=== PATIENT | female | born 1980 | race Caucasian/White ===

== ENCOUNTER → 2018-07-14 | Outpatient (CLI) | payer BC ==
[2018-07-14 09:18] LABS: HEMATOCRIT 39.5 % (36.0-47.0); HEMOGLOBIN 13.2 g/dl (12.0-15.5); MEAN CORPUSCULAR HGB CONC 33.4 g/dl (32.0-36.5); MEAN CORPUSCULAR VOLUME 89.8 fl (80.0-96.0); PLATELET COUNT, AUTOMATED 254 10^3/uL (150-450); WHITE BLOOD COUNT 7.5 10^3/uL (4.0-10.0)
[2018-07-14 09:57] LABS: ALBUMIN 3.6 GM/DL (3.2-5.2); ALT/SGPT 19 U/L (12-78); BILIRUBIN,TOTAL 0.4 MG/DL (0.2-1.0); BLOOD UREA NITROGEN 19 MG/DL (7-18); CALCIUM LEVEL 8.8 MG/DL (8.5-10.1); CARBON DIOXIDE LEVEL 27 MEQ/L (21-32); CHLORIDE LEVEL 106 MEQ/L (98-107); CHOLESTEROL LEVEL 270 MG/DL (<200); CHOLESTEROL RISK RATIO 3.552 (<5); GLOMERULAR FILTRATION RATE > 60.0 (>60); GLUCOSE, FASTING 87 MG/DL (70-100); HDL CHOLESTEROL 76 MG/DL (>40); LDL CHOLESTEROL 163 MG/DL (<100); NON-HDL-C 194 MG/DL; SODIUM LEVEL 139 MEQ/L (136-145); TOTAL PROTEIN 6.8 GM/DL (6.4-8.2); TRIGLYCERIDES LEVEL 157 MG/DL (<150)
== END ==
LOC: M WUC 08:17
PROVIDERS: ATTEND Nurse Practitioner Adult Health
DX: Z00.00 Encounter for general adult medical examination without abnormal findings (principal)

== ENCOUNTER → 2018-07-20 | Outpatient (CLI) | payer BC, OTHER ==
--- NOTE | 2018-07-21 10:09 | REP ---
Renal ultrasound: The right kidney measures 10.3 x 4.7 x 4.0 cm. The left kidney measures 9.1 x 3.5 by 4.9 cm. The right kidney is normal size. The left kidney is in the low normal size range. Renal cortical echogenicity is normal bilaterally. There is no hydronephrosis or hydroureter on the right on the left. There are no solid or cystic renal masses. There are no renal calculi. Bladder: The bladder is incompletely distended and cannot be further evaluated. There is an artifactual bladder wall fold in the superior anterior bladder wall. The bladder wall appears diffusely thickened, however, this is likely artifact from incomplete distension. Impression: The left kidney is in the low normal size range. The kidneys are otherwise unremarkable. The bladder is incompletely distended and cannot be further evaluated at this time. Electronically Signed by Iban Stanley MD 07/21/2018 10:01 A
== END ==
LOC: M RAD 17:30
PROVIDERS: ATTEND Nurse Practitioner Adult Health
DX: R03.0 Elevated blood-pressure reading, without diagnosis of hypertension (principal)

== ENCOUNTER → 2018-07-29 | Outpatient (CLI) | payer BC ==
--- NOTE | 2018-07-30 07:57 | ECHO ---
DATE OF STUDY: 07/29/2018 REFERRING PROVIDER: CYNTHIA Simental INDICATION: Heart murmur. HEIGHT: 150 cm. WEIGHT: 59 kg. DIMENSIONS: IVS: 1.1 LV: 3.8 LVPW: 1.1 LA: 3.3 Aorta: 2.7 IVC: 1.5 Mitral E wave velocity: 110 A-wave: 74 E prime septal: 11.0 E prime lateral: 13.1 Left atrial volume index: 33 FINDINGS: This study is of good technical quality. The patient is in sinus rhythm. Left ventricle is of normal size and has normal systolic function, estimated left ventricular ejection fraction (LVEF) 65-70%. Right ventricle also normal size and systolic function. Left atrium is mildly enlarged. Right atrium appears normal. Aortic, mitral, tricuspid and pulmonic valves were all reasonably well seen and appear normal. No pericardial effusion is noted. Inferior vena cava is of normal size and appropriately collapses with respiration indicative of normal central venous pressure. Aortic root, aortic arch and visualized segment of abdominal aorta all appear normal. Doppler interrogation reveals no aortic or mitral valve disease. There is mild mitral insufficiency. Calculated pulmonary artery pressure is in 30s corresponding to mild pulmonary hypertension. Pulmonic valve is also minimally insufficient. Mitral inflow pattern and tissue Doppler imaging of mitral annulus reveal normal diastolic function. CONCLUSIONS: 1. Study is of good technical quality. 2. Normal LV size, systolic and diastolic function. 3. No significant valvular disease. 4. Normal central venous pressure but likely mild pulmonary hypertension. COMMENTS: Subacute bacterial endocarditis (SBE) prophylaxis is not recommended.
== END ==
LOC: M CARPUL 09:16
PROVIDERS: ATTEND Nurse Practitioner Adult Health
DX: R03.0 Elevated blood-pressure reading, without diagnosis of hypertension (principal); R01.1 Cardiac murmur, unspecified

== ENCOUNTER → 2018-09-27 | Outpatient (REF) | LOC: M LAB REF 15:28 | PROVIDERS: ATTEND Nurse Practitioner Adult Health | DX: Z00.00 Encounter for general adult medical examination without abnormal findings (principal) ==

== ENCOUNTER → 2019-09-09 | Outpatient (CLI) | payer BC ==
[2019-09-09 11:29] LABS: HEMATOCRIT 35.5 % (36.0-47.0); HEMOGLOBIN 11.8 g/dl (12.0-15.5); MEAN CORPUSCULAR HEMOGLOBIN 31.1 pg (27.0-33.0); MEAN CORPUSCULAR HGB CONC 33.2 g/dl (32.0-36.5); MEAN CORPUSCULAR VOLUME 93.7 fl (80.0-96.0); PLATELET COUNT, AUTOMATED 268 10^3/uL (150-450); RED BLOOD COUNT 3.79 10^6/uL (4.00-5.40); WHITE BLOOD COUNT 6.5 10^3/uL (4.0-10.0)
[2019-09-09 11:43] LABS: ALBUMIN 3.1 GM/DL (3.2-5.2); ALT/SGPT 26 U/L (12-78); BILIRUBIN,TOTAL 0.3 MG/DL (0.2-1.0); BLOOD UREA NITROGEN 18 MG/DL (7-18); CALCIUM LEVEL 8.7 MG/DL (8.5-10.1); CARBON DIOXIDE LEVEL 27 MEQ/L (21-32); CHLORIDE LEVEL 106 MEQ/L (98-107); CHOLESTEROL LEVEL 249 MG/DL (<200); CREATININE FOR GFR 1.01 MG/DL (0.55-1.30); GLOMERULAR FILTRATION RATE > 60.0 (>60); GLUCOSE, FASTING 86 MG/DL (70-100); HDL CHOLESTEROL 75 MG/DL (>40); LDL CHOLESTEROL 151 MG/DL (<100); NON-HDL-C 174 MG/DL; POTASSIUM SERUM 4.1 MEQ/L (3.5-5.1); SODIUM LEVEL 141 MEQ/L (136-145); TOTAL PROTEIN 6.2 GM/DL (6.4-8.2); TRIGLYCERIDES LEVEL 114 MG/DL (<150)
== END ==
LOC: M PLALAB 08:45
PROVIDERS: ATTEND Nurse Practitioner Adult Health
DX: Z00.00 Encounter for general adult medical examination without abnormal findings (principal); Z13.220 Encounter for screening for lipoid disorders

== ENCOUNTER → 2019-10-04 | Outpatient (REF) | payer BC | LOC: M PLALAB 08:53 | PROVIDERS: ATTEND Nurse Practitioner Women's Health | DX: Z12.4 Encounter for screening for malignant neoplasm of cervix (principal) ==

== ENCOUNTER → 2019-10-14 | Outpatient (REF) | payer BC | LOC: M SFHCWAGY 17:57 | PROVIDERS: ATTEND Nurse Practitioner Women's Health | DX: R87.613 High grade squamous intraepithelial lesion on cytologic smear of cervix (HGSIL) (principal); R87.810 Cervical high risk human papillomavirus (HPV) DNA test positive ==

== ENCOUNTER → 2020-02-15 | Outpatient (CLI) | payer SELFPAY | LOC: M LABSMTC 11:33 | PROVIDERS: ATTEND Pediatrics | DX: Z20.828 Contact with and (suspected) exposure to other viral communicable diseases (principal) ==

== ENCOUNTER → 2020-02-18 | Outpatient (CLI) | payer SELFPAY | LOC: M LABSMTC 11:02 | PROVIDERS: ATTEND Pediatrics | DX: Z20.828 Contact with and (suspected) exposure to other viral communicable diseases (principal) ==

== ENCOUNTER → 2020-02-21 | Outpatient (CLI) | payer SELFPAY | LOC: M LABSMTC 11:19 | PROVIDERS: ATTEND Pediatrics | DX: Z20.828 Contact with and (suspected) exposure to other viral communicable diseases (principal) ==

== ENCOUNTER → 2020-02-24 | Outpatient (CLI) | payer SELFPAY | LOC: M LABSMTC 11:22 | PROVIDERS: ATTEND Pediatrics | DX: Z20.828 Contact with and (suspected) exposure to other viral communicable diseases (principal) ==

== ENCOUNTER → 2020-02-28 | Outpatient (CLI) | payer SELFPAY | LOC: M LABSMTC 11:13 | PROVIDERS: ATTEND Pediatrics | DX: Z11.59 Encounter for screening for other viral diseases (principal) ==

== ENCOUNTER → 2020-03-23 | Outpatient (REF) | payer BC | LOC: M SFHCWAGY 17:09 | PROVIDERS: ATTEND Specialist | DX: N87.1 Moderate cervical dysplasia (principal) ==

== ENCOUNTER → 2020-10-16 | Outpatient (CLI) | payer OTHER ==
[2020-10-16 12:13] LABS: ALBUMIN 3.2 GM/DL (3.2-5.2); BILIRUBIN,TOTAL 0.3 MG/DL (0.2-1.0); CALCIUM LEVEL 8.5 MG/DL (8.5-10.1); CHOLESTEROL RISK RATIO 4.838 (<5); CREATININE FOR GFR 1.12 MG/DL (0.55-1.30); GLOMERULAR FILTRATION RATE 57.4 (>58); POTASSIUM SERUM 4.2 MEQ/L (3.5-5.1); THYROID STIMULATING HORMONE 1.83 uIU/ML (0.358-3.740)
== END ==
LOC: M PLALAB 08:09
PROVIDERS: ATTEND Nurse Practitioner Adult Health
DX: Z00.00 Encounter for general adult medical examination without abnormal findings (principal); Z13.29 Encounter for screening for other suspected endocrine disorder; Z13.220 Encounter for screening for lipoid disorders

== ENCOUNTER → 2020-10-24 | Outpatient (CLI) | payer BC, OTHER ==
--- NOTE | 2020-10-24 15:43 | REPMRS ---
Patient History The patient states she had a clinical breast exam in October 2020. Patient is nulliparous. No known family history of cancer. Took hormonal contraceptives for 15 years. Moderna vaccine 06/06/20 left arm, 07/04/20 right arm. Pt denied . Patient states no breast complaints today. Patient has signed MRS History Sheet. Digital Woman Screen Mammo: October 24, 2020 - Exam #: [id number] Bilateral CC and MLO view(s) were taken. Technologist: Saadia Bojorquez, RT No prior studies available for comparison. FINDINGS: There are scattered fibroglandular densities. The Volpara volumetric breast density category is: B. There is no evidence of dominant mass, architectural distortion, or grouped microcalcification typical of malignancy. 3-D tomosynthesis shows no additional findings. Assessment: BI-RADS/ACR category 1 mammogram. Negative Mammogram. Recommendation Routine screening mammogram of both breasts in 1 year (for women over age 40). This patient's [facility] Lifetime Breast Cancer RIsk is estimated at 14.7 %. This mammogram was interpreted with the aid of an FDA-approved computer-aided dectection system. Electronically Signed By: Ryan Layne MD 10/24/20 [id number]
== END ==
LOC: M WHC 13:41
PROVIDERS: ATTEND Nurse Practitioner Women's Health
DX: Z12.31 Encounter for screening mammogram for malignant neoplasm of breast (principal)

== ENCOUNTER → 2020-10-24 | Outpatient (REF) | payer BC | LOC: M SFHCWAGY 18:02 | PROVIDERS: ATTEND Nurse Practitioner Women's Health | DX: Z12.4 Encounter for screening for malignant neoplasm of cervix (principal); Z98.890 Other specified postprocedural states; N87.1 Moderate cervical dysplasia | CPT/HCPCS: 87624; G0123 ==

== ENCOUNTER → 2020-11-21 | Outpatient (CLI) | payer OTHER ==
--- NOTE | 2020-11-21 13:39 | PFTRPT ---
Site: [facility], [address] [place] [address], [id number] ID: [id number] Name: JACKIE MCINTOSH Visit Date: 11/21/2020 Second ID: [id number] Referring Doctor: Shayna Bell Reviewing Doctor: Maurisio Alvarez MD Hand Packer: Jace ISSA RRT Age: 40 : 1980 Sex: Female Race: Height: 60.00 Inches Weight: 130.00 Lbs BSA: 1.55 Order IDs: [id number] Requested Test(s): <RESP-PFT.PFT B/A> Diagnosis: R06.02 of albuterol for post bronchodilator. The results of this test meet the ATS standards for acceptability and repeatability. Review Status: Not Reviewed Pre-Bronch Post-Bronch Pred Actual %Pred Actual %Chng SPIROMETRY FVC (L) 3.21 3.25 101 3.23 FEV1 (L) 2.63 2.83 107 2.88 1 FEV1/FVC (%) 82 87 106 89 2 FEF 25% (L/sec) 5.02 6.18 123 6.08 -1 FEF 50% (L/sec) 4.19 4.62 110 4.88 5 FEF 75% (L/sec) 1.65 1.58 95 1.75 10 FEF 25-75% (L/sec) 2.88 3.70 128 3.96 6 FEF Max (L/sec) 6.36 6.96 109 6.99 FIVC (L) 3.36 3.35 FIF 50% (L/sec) 3.62 4.14 114 3.34 -19 FIF Max (L/sec) 4.42 3.95 -10 MVV (L/min) 94 103 109 Expiratory Time (sec) 6.39 6.76 5 Back Extrap Vol (L) 0.09 0.12 36 Time To FEFmax (sec) 0.074 0.094 26 LUNG VOLUMES SVC (L) 3.05 3.51 115 IC (L) 2.02 2.68 132 ERV (L) 1.03 0.83 80 TGV (L) 2.43 1.98 81 RV (Pleth) (L) 1.40 1.14 81 TLC (Pleth) (L) 4.45 4.66 104 RV/TLC (Pleth) (%) 31 25 79 DIFFUSION DLCOunc (ml/min/mmHg) 22.13 16.87 76 DL/VA (ml/min/mmHg/L) 4.97 3.73 74 VA (L) 4.45 4.53 101 BHT (sec) 10.30 IVC (L) 3.39 TLC (SB) (L) 4.68 AIRWAYS RESISTANCE Raw (cmH2O/L/s) 1.86 1.55 83 Gaw (L/s/cmH2O) 1.03 0.65 63 sRaw (cmH2O*s) 4.76 3.47 72 sGaw (1/cmH2O*s) 0.20 0.29 145
== END ==
LOC: M CARPUL 12:54
PROVIDERS: ATTEND Nurse Practitioner Adult Health
DX: R06.02 Shortness of breath (principal)

== ENCOUNTER → 2020-12-05 | Outpatient (CLI) | payer OTHER ==
[~2020-12-05] MED LIST: METHACHOLINE KIT (J7674) INH ONE
--- NOTE | 2020-12-05 08:45 | PFTRPT ---
Height: 60.00 Inches Weight: 130.00 Lbs BSA: 1.55 Diagnosis: R06.02 DATE: 12/05/2020 ORDERED BY: Shayna Armstrong RN, ANP QUALITY: Study of excellent technical quality. PROCEDURE: Under protocol, methacholine was administered. A dose of 10 mg or 63.875 CDUs, a 20% decline in the FEV1 was noted. PC of 9.21 is in the indeterminate category. Flow rates did return to baseline post bronchodilator administration. IMPRESSION: Indeterminate methacholine challenge. Please correlate clinically. MTDD
== END ==
LOC: M CARPUL 07:57
PROVIDERS: ATTEND Nurse Practitioner Adult Health
DX: R06.02 Shortness of breath (principal); Z72.0 Tobacco use
CPT/HCPCS: 94070; J7674

== ENCOUNTER → 2021-04-02 | Outpatient (REF) | LOC: M EMP 07:45 | PROVIDERS: ATTEND Family Medicine | DX: Z20.822 Contact with and (suspected) exposure to COVID-19 (principal) ==

== ENCOUNTER → 2021-05-09 | Outpatient (CLI) | payer OTHER ==
[2021-05-09 11:04] LABS: ALBUMIN 3.7 GM/DL (3.2-5.2); BILIRUBIN,TOTAL 0.5 MG/DL (0.2-1.0); CALCIUM LEVEL 9.2 MG/DL (8.5-10.1); CHOLESTEROL RISK RATIO 3.48 (<5); CREATININE FOR GFR 1.45 MG/DL (0.55-1.30); GLOMERULAR FILTRATION RATE 42.4 (>58); POTASSIUM SERUM 4.6 MEQ/L (3.5-5.1); TOTAL PROTEIN 6.6 GM/DL (6.4-8.2)
== END ==
LOC: M PLALAB 07:32
PROVIDERS: ATTEND Nurse Practitioner Adult Health
DX: E78.2 Mixed hyperlipidemia (principal)

== ENCOUNTER → 2021-10-23 | Outpatient (CLI) | payer OTHER ==
[2021-10-23 11:04] LABS: ALBUMIN 2.8 GM/DL (3.2-5.2); BILIRUBIN,TOTAL 0.2 MG/DL (0.2-1.0); CALCIUM LEVEL 8.7 MG/DL (8.5-10.1); CHOLESTEROL RISK RATIO 3.764 (<5); CREATININE FOR GFR 1.35 MG/DL (0.55-1.30); POTASSIUM SERUM 4.3 MEQ/L (3.5-5.1); THYROID STIMULATING HORMONE 1.92 uIU/ML (0.358-3.740); TOTAL PROTEIN 5.7 GM/DL (6.4-8.2)
[2021-10-24 12:07] LABS: HERPES ZOSTER, VARICELLA IgG 217 index (Immune >165); RUBEOLA IgG ANTIBODY 30.4 AU/mL (Immune >16.4)
== END ==
LOC: M PLALAB 07:45
PROVIDERS: ATTEND Nurse Practitioner Adult Health
DX: Z01.84 Encounter for antibody response examination (principal); Z13.29 Encounter for screening for other suspected endocrine disorder; E78.2 Mixed hyperlipidemia; Z78.9 Other specified health status

== ENCOUNTER → 2021-11-06 | Outpatient (CLI) | payer OTHER | LOC: M CARPUL 09:27 | PROVIDERS: ATTEND Nurse Practitioner Adult Health | DX: R01.1 Cardiac murmur, unspecified (principal) ==

== ENCOUNTER → 2021-12-18 | Outpatient (REF) | payer OTHER ==
[2021-12-18 19:33] LABS: COMPLEMENT C3 128 MG/DL (90-180); COMPLEMENT C4 30 MG/DL (10-40)
[2021-12-18 19:39] LABS: CREATININE,RANDOM URINE 75.5 MG/DL; TOTAL PROTEIN,RANDOM URINE 308.6 MG/DL (0.0-12.0)
== END ==
LOC: M LAB REF 16:45
PROVIDERS: ATTEND Internal Medicine Nephrology
DX: R80.9 Proteinuria, unspecified (principal)

== ENCOUNTER → 2022-01-02 | Outpatient (REF) | payer OTHER | LOC: M SFHCWAGY 15:20 | PROVIDERS: ATTEND Obstetrics & Gynecology | DX: Z01.419 Encounter for gynecological examination (general) (routine) without abnormal findings (principal) | CPT/HCPCS: 87624; G0123 ==

== ENCOUNTER → 2022-03-11 | Outpatient (POV) | payer OTHER ==
[~2022-03-11] VITALS: Ht 152.4 cm; Wt 61.3 kg
[2022-03-11 08:50] VITALS: BP 147/97
== END ==
LOC: M IRPOV 08:43
PROVIDERS: ATTEND Radiology Diagnostic Radiology
DX: I12.9 Hypertensive chronic kidney disease with stage 1 through stage 4 chronic kidney disease, or unspecified chronic kidney disease (principal); N18.9 Chronic kidney disease, unspecified; Z86.16 Personal history of COVID-19; N04.9 Nephrotic syndrome with unspecified morphologic changes; Z79.1 Long term (current) use of non-steroidal anti-inflammatories (NSAID); Z87.891 Personal history of nicotine dependence; Z88.0 Allergy status to penicillin

== ENCOUNTER → 2022-03-17 | Outpatient (CLI) | payer OTHER | LOC: M LABSMTC 09:40 | PROVIDERS: ATTEND Anesthesiology | DX: Z01.812 Encounter for preprocedural laboratory examination (principal); Z11.52 Encounter for screening for COVID-19 ==

== ENCOUNTER → 2022-03-20 | Outpatient (CLI) | payer OTHER ==
[~2022-03-20] MED LIST changes: +LIDOCAINE 1% MDV 20ML VIAL As Ordered ONE; +LIPI10TA PO; +LOSA25TA13 PO; -METHACHOLINE KIT (J7674) INH ONE; +MIDAZOLAM INJ 2MG/2ML VIAL (J2250 PER 1MG) As Ordered ONE; +NS 1,000 ML IV SCH; +TERB250T91 PO; +diphenhydrAMINE 50MG/ML VIAL As Ordered ONE; +fentaNYL 100 MCG/2 ML INJECTION As Ordered ONE
[2022-03-20 12:50] VITALS: BP 152/82
== END ==
LOC: M IRPRO 08:52
PROVIDERS: ATTEND Internal Medicine Nephrology
DX: R80.8 Other proteinuria (principal)
CPT/HCPCS: 50200; 77012; 88300; 99152; J1200; J2250; J3010

== ENCOUNTER → 2022-06-09 | Outpatient (REF) | payer OTHER ==
[~2022-06-09] MED LIST changes: -LIDOCAINE 1% MDV 20ML VIAL As Ordered ONE; -MIDAZOLAM INJ 2MG/2ML VIAL (J2250 PER 1MG) As Ordered ONE; -NS 1,000 ML IV SCH; -diphenhydrAMINE 50MG/ML VIAL As Ordered ONE; -fentaNYL 100 MCG/2 ML INJECTION As Ordered ONE
[2022-06-09 18:29] LABS: TOTAL PROTEIN,RANDOM URINE 50.7 MG/DL (0.0-14.0)
[2022-06-09 18:34] LABS: CREATININE,RANDOM URINE 32.8 MG/DL
== END ==
LOC: M LAB REF 17:09
PROVIDERS: ATTEND Internal Medicine Nephrology
DX: N18.31 Chronic kidney disease, stage 3a (principal)

== ENCOUNTER → 2022-07-15 | Outpatient (CLI) | payer OTHER ==
[2022-07-15 10:38] LABS: HEMATOCRIT 34.8 % (36.0-47.0); HEMOGLOBIN 11.2 g/dl (12.0-15.5); MEAN CORPUSCULAR HEMOGLOBIN 30.9 pg (27.0-33.0); MEAN CORPUSCULAR HGB CONC 32.2 g/dl (32.0-36.5); MEAN CORPUSCULAR VOLUME 96.1 fl (80.0-96.0); PLATELET COUNT, AUTOMATED 233 10^3/uL (150-450); RED BLOOD COUNT 3.62 10^6/uL (4.00-5.40); WHITE BLOOD COUNT 12.2 10^3/uL (4.0-10.0)
[2022-07-15 10:42] LABS: ALBUMIN 3.1 G/DL (3.2-5.2); BILIRUBIN,TOTAL 0.3 MG/DL (0.3-1.2); CALCIUM LEVEL 8.4 MG/DL (8.5-10.1); CHOLESTEROL RISK RATIO 3.43 (<5); CREATININE FOR GFR 1.55 MG/DL (0.55-1.30); HDL CHOLESTEROL 84.5 MG/DL (>40); LDL CHOLESTEROL 142.1 MG/DL (<100); NON-HDL-C 205.5 MG/DL; PERCENT SATURATION 10.6 % (13.2-45.0); POTASSIUM SERUM 4.5 MMOL/L (3.5-5.1); TOTAL PROTEIN 5.3 G/DL (5.7-8.2)
[2022-07-15 10:46] LABS: FERRITIN 9.2 NG/ML (7.3-270.7); THYROID STIMULATING HORMONE 3.342 uIU/ML (0.55-4.78)
== END ==
LOC: M PLALAB 07:55
PROVIDERS: ATTEND Nurse Practitioner Adult Health
DX: I10 Essential (primary) hypertension (principal)

== ENCOUNTER → 2022-12-01 | Outpatient (REF) | payer OTHER ==
[2022-12-01 18:07] LABS: CREATININE,RANDOM URINE 22.4 MG/DL
== END ==
LOC: M LAB REF 16:56
PROVIDERS: ATTEND Internal Medicine Nephrology
DX: N18.31 Chronic kidney disease, stage 3a (principal)

== ENCOUNTER → 2023-01-19 | Outpatient (CLI) | payer OTHER ==
[2023-01-19 10:42] LABS: HEMATOCRIT 34.5 % (36.0-47.0); HEMOGLOBIN 11.3 g/dl (12.0-15.5); MEAN CORPUSCULAR HGB CONC 32.8 g/dl (32.0-36.5); MEAN CORPUSCULAR VOLUME 91.5 fl (80.0-96.0); PLATELET COUNT, AUTOMATED 245 10^3/uL (150-450); RED BLOOD COUNT 3.77 10^6/uL (4.00-5.40); WHITE BLOOD COUNT 6.8 10^3/uL (4.0-10.0)
[2023-01-19 10:49] LABS: PERCENT SATURATION 24.7 % (13.2-45.0)
[2023-01-19 10:52] LABS: ALBUMIN 3.7 G/DL (3.2-5.2); BILIRUBIN,TOTAL 0.5 MG/DL (0.3-1.2); CALCIUM LEVEL 8.8 MG/DL (8.5-10.1); CHOLESTEROL RISK RATIO 2.76 (<5); CREATININE FOR GFR 1.45 MG/DL (0.55-1.30); FERRITIN 11.1 NG/ML (7.3-270.7); GLOMERULAR FILTRATION RATE 42.2 (>58); HDL CHOLESTEROL 66.3 MG/DL (>40); LDL CHOLESTEROL 91.3 MG/DL (<100); MAGNESIUM LEVEL 1.8 MG/DL (1.8-2.4); NON-HDL-C 116.7 MG/DL; POTASSIUM SERUM 4.1 MMOL/L (3.5-5.1); THYROID STIMULATING HORMONE 1.657 uIU/ML (0.55-4.78); TOTAL PROTEIN 6.2 G/DL (5.7-8.2)
== END ==
LOC: M PLALAB 07:52
PROVIDERS: ATTEND Nurse Practitioner Adult Health
DX: Z00.00 Encounter for general adult medical examination without abnormal findings (principal); I10 Essential (primary) hypertension; Z13.29 Encounter for screening for other suspected endocrine disorder

== ENCOUNTER → 2023-01-28 | Outpatient (CLI) | payer OTHER | LOC: M PLAIMG 15:01 | PROVIDERS: ATTEND Nurse Practitioner Adult Health | DX: R06.02 Shortness of breath (principal) ==

== ENCOUNTER → 2023-03-03 | Outpatient (REF) | payer OTHER ==
[2023-03-03 19:16] LABS: TOTAL PROTEIN,RANDOM URINE 14.7 MG/DL (0.0-14.0)
[2023-03-03 19:21] LABS: CREATININE,RANDOM URINE 26.7 MG/DL
== END ==
LOC: M LAB REF 17:15
PROVIDERS: ATTEND Internal Medicine Nephrology
DX: N18.31 Chronic kidney disease, stage 3a (principal)

== ENCOUNTER → 2023-04-20 | Outpatient (REF) | payer OTHER | LOC: M SFHCWAGY 15:17 | PROVIDERS: ATTEND Obstetrics & Gynecology | DX: Z01.419 Encounter for gynecological examination (general) (routine) without abnormal findings (principal) | CPT/HCPCS: 87624; G0123 ==

== ENCOUNTER → 2023-04-20 | Outpatient (CLI) | payer OTHER | LOC: M WHC 13:56 | PROVIDERS: ATTEND Obstetrics & Gynecology | DX: Z12.31 Encounter for screening mammogram for malignant neoplasm of breast (principal) | CPT/HCPCS: 77063; 77067; G0463 ==

== ENCOUNTER → 2023-07-02 | Outpatient (REF) | payer OTHER ==
[2023-07-02 17:50] LABS: TOTAL PROTEIN,RANDOM URINE 58.9 MG/DL (0.0-14.0)
[2023-07-02 18:18] LABS: CREATININE,RANDOM URINE 138.8 MG/DL
== END ==
LOC: M LAB REF 17:02
PROVIDERS: ATTEND Internal Medicine Nephrology
DX: R80.9 Proteinuria, unspecified (principal)

== ENCOUNTER → 2023-07-23 | Outpatient (CLI) | payer OTHER ==
[2023-07-23 12:28] LABS: CHOLESTEROL RISK RATIO 2.93 (<5); HDL CHOLESTEROL 59.9 MG/DL (>40); LDL CHOLESTEROL 94.5 MG/DL (<100); NON-HDL-C 116.1 MG/DL
[2023-07-23 12:30] LABS: THYROID STIMULATING HORMONE 2.008 uIU/ML (0.55-4.78)
[2023-07-23 12:31] LABS: FREE T4 1.04 NG/DL (0.89-1.76)
== END ==
LOC: M PLALAB 07:28
PROVIDERS: ATTEND Nurse Practitioner Adult Health
DX: E78.2 Mixed hyperlipidemia (principal); Z13.29 Encounter for screening for other suspected endocrine disorder

== ENCOUNTER → 2023-08-03 | Outpatient (CLI) | payer OTHER | LOC: M PLAIMG 07:20 | PROVIDERS: ATTEND Nurse Practitioner Adult Health | DX: R25.1 Tremor, unspecified (principal); R51.9 Headache, unspecified ==

== ENCOUNTER → 2023-12-29 | Outpatient (REF) | payer OTHER ==
[2023-12-29 18:38] LABS: CREATININE,RANDOM URINE 70.6 MG/DL
== END ==
LOC: M LAB REF 17:33
PROVIDERS: ATTEND Internal Medicine Nephrology
DX: R80.9 Proteinuria, unspecified (principal)

== ENCOUNTER → 2024-01-20 | Outpatient (CLI) | payer OTHER ==
[2024-01-20 16:18] LABS: ALBUMIN 4.3 G/DL (3.2-5.2); BILIRUBIN,TOTAL 0.5 MG/DL (0.3-1.2); CALCIUM LEVEL 10.1 MG/DL (8.5-10.1); CHOLESTEROL RISK RATIO 3.09 (<5); CREATININE FOR GFR 1.46 MG/DL (0.55-1.30); GLOMERULAR FILTRATION RATE 41.6 (>58); HDL CHOLESTEROL 77.2 MG/DL (>40); LDL CHOLESTEROL 139.4 MG/DL (<100); NON-HDL-C 161.8 MG/DL; PERCENT SATURATION 18.7 % (13.2-45.0); POTASSIUM SERUM 4.8 MMOL/L (3.5-5.1); TOTAL PROTEIN 7.5 G/DL (5.7-8.2)
[2024-01-20 16:19] LABS: HEMATOCRIT 40.4 % (36.0-47.0); HEMOGLOBIN 13.3 g/dl (12.0-15.5); MEAN CORPUSCULAR HEMOGLOBIN 32.4 pg (27.0-33.0); MEAN CORPUSCULAR HGB CONC 32.9 g/dl (32.0-36.5); MEAN CORPUSCULAR VOLUME 98.3 fl (80.0-96.0); PLATELET COUNT, AUTOMATED 266 10^3/uL (150-450); RED BLOOD COUNT 4.11 10^6/uL (4.00-5.40); WHITE BLOOD COUNT 9.4 10^3/uL (4.0-10.0)
[2024-01-20 16:20] LABS: FERRITIN 58.1 NG/ML (7.3-270.7); THYROID STIMULATING HORMONE 1.396 uIU/ML (0.55-4.78)
[2024-01-20 16:21] LABS: FREE T4 1.44 NG/DL (0.89-1.76)
[2024-01-20 16:30] LABS: HEMOGLOBIN A1c 4.8 % (4.0-6.0)
== END ==
LOC: M PLALAB 09:14
PROVIDERS: ATTEND Nurse Practitioner Adult Health
DX: I10 Essential (primary) hypertension (principal); Z13.29 Encounter for screening for other suspected endocrine disorder; E78.2 Mixed hyperlipidemia; R80.9 Proteinuria, unspecified

== ENCOUNTER → 2024-02-03 | Outpatient (CLI) | payer OTHER | LOC: M RAD 15:11 | PROVIDERS: ATTEND Nurse Practitioner Adult Health | DX: R25.1 Tremor, unspecified (principal); R51.9 Headache, unspecified ==

== ENCOUNTER → 2024-06-28 | Outpatient (REF) | payer OTHER ==
[2024-06-28 17:52] LABS: TOTAL PROTEIN,RANDOM URINE 11.2 MG/DL (0.0-14.0)
[2024-06-28 17:57] LABS: CREATININE,RANDOM URINE 19.4 MG/DL
== END ==
LOC: M LAB REF 17:05
PROVIDERS: ATTEND Internal Medicine Nephrology
DX: N18.31 Chronic kidney disease, stage 3a (principal)